=== PATIENT | male | born 1980 | race Two or more races ===

== ENCOUNTER 2016-09-20 07:45 | Emergency (ER) | payer BC ==
[~2016-09-20] VITALS: Ht 180.3 cm; Wt 102.1 kg
[2016-09-20 08:10] VITALS: BP 131/81
[2016-09-20] MEDS ORDERED: IBUPROFEN 800 MG TAB PO ONE (10:30)
== END 2016-09-20 11:25 | disposition home or self-care (01) ==
LOC: EDBD 07:45 → ER 07:51
DX: S16.1XXA Strain of muscle, fascia and tendon at neck level, initial encounter (principal); V49.9XXA Car occupant (driver) (passenger) injured in unspecified traffic accident, initial encounter; Y93.89 Activity, other specified; Y99.8 Other external cause status; Y92.488 Other paved roadways as the place of occurrence of the external cause
CPT/HCPCS: 72040